=== PATIENT | female | born 1950 | race American Indian/Alaskan Native ===

== ENCOUNTER 2016-06-04 10:40 | Emergency (ER) | payer SELFPAY ==
[2016-06-04 11:22] VITALS: BP 115/75
== END 2016-06-04 11:20 | disposition left against medical advice (07) ==
LOC: ED 10:40
DX: R10.9 Unspecified abdominal pain (principal); R11.0 Nausea; R51 Headache; Z53.21 Procedure and treatment not carried out due to patient leaving prior to being seen by health care provider